=== PATIENT | male | born 1960 | race Caucasian/White ===

== ENCOUNTER → 2017-09-03 | Outpatient (CLI) | payer BC | LOC: M RAD 08:45 | DX: N18.3 Chronic kidney disease, stage 3 (moderate) (principal) ==

== ENCOUNTER → 2022-07-10 | Outpatient (REF) | LOC: M LAB LCGH 09:40 | PROVIDERS: ATTEND Physician Assistant | DX: N18.30 Chronic kidney disease, stage 3 unspecified (principal) ==

== ENCOUNTER → 2022-08-10 | Outpatient (REF) | payer BC ==
[2022-08-10 18:17] LABS: TOTAL PROTEIN,RANDOM URINE 8.3 MG/DL (0.0-14.0)
[2022-08-10 18:21] LABS: CREATININE,RANDOM URINE 49.2 MG/DL
== END ==
LOC: M LAB REF 17:00
PROVIDERS: ATTEND Internal Medicine Nephrology
DX: N18.31 Chronic kidney disease, stage 3a (principal)

== ENCOUNTER → 2023-07-30 | Outpatient (REF) | payer BC | LOC: M SMT PRO 10:09 | PROVIDERS: ATTEND Urology | DX: R97.20 Elevated prostate specific antigen [PSA] (principal) ==

== ENCOUNTER 2023-10-24 06:10 | Inpatient (IN) | payer BC ==
[~2023-10-24] VITALS: Ht 172.7 cm; Wt 122.5 kg
[~2023-10-24 06:10] MED LIST: ALLO300T2 PO; ALTA1CAP3 PO; AMIO0.1T PO; ATOR40TA75 PO; BAYE81TA10 PO; CARV12.5 PO; D 50CAP3 PO; D-10TAB3 PO; DULA3PEN SQ; ELIQ2.5T PO; GLIM4TAB5 PO; INSU100V15 SQ; INSU100V6 SQ; IPRA0.00 INH; JARD1TAB PO; MAGN400C PO; NITR0.4S14 SL; ROCA0.25 PO; TORS5TAB2 PO
[2023-10-24] MEDS ORDERED: INSULIN LISPRO (NovoLOG) PER UNIT SC PRN (06:30)
[2023-10-24] MEDS ORDERED: GLUCAGON INJ 1MG VIAL SC PRN ×2 (06:30→07:35)
[2023-10-24] MEDS ORDERED: GLUCOSE 4GM CHEW TABLET PO PRN ×2 (06:30→07:35)
[2023-10-24] MEDS ORDERED: DEXTROSE 50% 50ML SYRINGE IV PRN ×2 (06:30→07:35)
[2023-10-24] MEDS ORDERED: DEX44CHW2 PO (06:41)
[2023-10-24] MEDS ORDERED: LIDOCAINE 1% MDV 20ML VIAL As Ordered ONE (07:11)
[2023-10-24] MEDS ORDERED: LIDOCAINE 1% SDV 30ML VIAL As Ordered ONE (07:11)
[2023-10-24] MEDS ORDERED: LIDOCAINE 1% SDV 30ML VIAL ONE (07:11)
[2023-10-24] MEDS: ceFAZolin SOD 1 GM in D5W MINI-BAG PLUS 50 ML IV ONE (07:30)
[2023-10-24] MEDS: ceFAZolin SOD 2 GM in IV 1 EA IV ONE (07:30)
[2023-10-24] MEDS: LR 1,000 ML IV SCH ×2 (07:33→14:28)
[2023-10-24] MEDS ORDERED: ONDANSETRON 4MG 2ML VIAL IV PRN ×2 (07:35→12:15)
[2023-10-24] MEDS ORDERED: PERCOCET 5MG/325MG TAB PO PRN ×2 (07:35)
[2023-10-24] MEDS: HEPARIN SOD (PORCINE) 5000UNITS/ML 1ML VIAL/SYRINGE SQ ONE (07:50)
[2023-10-24] MEDS ORDERED: ROCURONIUM BROMIDE 50MG/5ML VIAL As Ordered ONE (09:00)
[2023-10-24] MEDS ORDERED: PHENYLEPHRINE 10MG/ML 1ML VIAL As Ordered ONE (09:00)
[2023-10-24] MEDS ORDERED: MIDAZOLAM INJ 2MG/2ML VIAL As Ordered ONE (09:00)
[2023-10-24] MEDS ORDERED: SUGAMMADEX SODIUM 500 MG/5 ML VIAL (BRIDION) As Ordered ONE (09:00)
[2023-10-24] MEDS ORDERED: ONDANSETRON 4MG 2ML VIAL As Ordered ONE (09:00)
[2023-10-24] MEDS ORDERED: HYDROmorphone HCL 2MG/ML 1ML VIAL As Ordered ONE (09:00)
[2023-10-24] MEDS ORDERED: propofoL 200 MG/20 ML VIAL As Ordered ONE (09:00)
[2023-10-24] MEDS ORDERED: ramipriL 5 MG CAP PO SCH (09:00)
[2023-10-24] MEDS ORDERED: METOCLOPRAMIDE INJ 10MG/2ML VIAL As Ordered ONE (09:00)
[2023-10-24] MEDS ORDERED: dexmedeTOMIDine (4MCG/ML)200MCG/50ML BTL (PRECEDEX) As Ordered ONE (09:00)
[2023-10-24] MEDS ORDERED: LIDOCAINE 2% 100MG/5ML SDV (FOR ANES.) As Ordered ONE (09:00)
[2023-10-24] MEDS ORDERED: ACETAMINOPHEN 1000MG 100ML IV BAG As Ordered ONE (09:00)
[2023-10-24] MEDS ORDERED: fentaNYL 250 MCG/5 ML INJECTION As Ordered ONE (09:00)
[2023-10-24] MEDS ORDERED: DESFLURANE 240 ML INHALANT As Ordered ONE (09:00)
[2023-10-24] MEDS ORDERED: ceFAZolin 2 GM/D5W 50 ML IV BAG ONE (10:54)
[2023-10-24] MEDS ORDERED: ceFAZolin 2 GM/D5W 50 ML IV BAG As Ordered ONE (10:54)
[2023-10-24] MEDS ORDERED: METOCLOPRAMIDE INJ 10MG/2ML VIAL IV PRN (12:15)
[2023-10-24] MEDS ORDERED: fentaNYL 100 MCG/2 ML INJECTION IV PRN (12:15)
[2023-10-24 13:11] LABS: HEMATOCRIT 47.7 % (42.0-52.0); HEMOGLOBIN 15.6 g/dl (13.5-17.5); MEAN CORPUSCULAR HEMOGLOBIN 30.4 pg (27.0-33.0); MEAN CORPUSCULAR HGB CONC 32.7 g/dl (32.0-36.5); MEAN CORPUSCULAR VOLUME 92.8 fl (80.0-96.0); PLATELET COUNT, AUTOMATED 247 10^3/uL (150-450); RED BLOOD COUNT 5.14 10^6/uL (4.30-6.10); WHITE BLOOD COUNT 16.9 10^3/uL (4.0-10.0)
[2023-10-24 13:35] VITALS: BP 122/81; TEMP 97; O2SAT 96
[2023-10-24 13:39] LABS: CALCIUM LEVEL 9.4 MG/DL (8.3-10.6); CREATININE FOR GFR 2.34 MG/DL (0.70-1.30); POTASSIUM SERUM 4.5 MMOL/L (3.5-5.1)
[2023-10-24 14:05] VITALS: BP 122/79; TEMP 97.2; O2SAT 96
[2023-10-24] MEDS ORDERED: AMIO200T49 PO (14:09)
[2023-10-24] MEDS ORDERED: HOME MED LIST COMPLETE! XX SCH (14:10)
[2023-10-24] MEDS: NS 1,000 ML IV SCH (14:28)
[2023-10-24] MEDS: INSULIN LISPRO (NovoLOG) PER UNIT SC SCH ×2 (14:28→21:00)
[2023-10-24 14:35] VITALS: BP 123/77; TEMP 97; O2SAT 96
[2023-10-24] MEDS: AMIODARONE 100MG TABLET (PACERONE) PO SCH (15:55)
[2023-10-24] MEDS: ceFAZolin SOD 1 GM in D5W MINI-BAG PLUS 50 ML IV SCH (15:56)
[2023-10-24 16:35] VITALS: BP 126/77; TEMP 97.5; O2SAT 96
[2023-10-24 17:35] VITALS: BP 125/77; TEMP 97.7; O2SAT 96
[2023-10-24 18:35] VITALS: BP 125/76; TEMP 97.7; O2SAT 96
[2023-10-24] MEDS: HEPARIN SOD (PORCINE) 5000UNITS/ML 1ML VIAL/SYRINGE SC SCH (21:20)
[2023-10-24] MEDS: DOCUSATE SODIUM 100MG CAPSULE PO SCH (21:20)
[2023-10-24] MEDS: CARVedilol 12.5 MG TAB PO SCH (21:20)
[2023-10-24] MEDS: ACETAMINOPHEN TAB 650MG DOSE (2X325MG) PO PRN (21:21)
[2023-10-25 02:00] VITALS: BP 129/74; TEMP 97.7; O2SAT 92
[2023-10-25 05:40] VITALS: BP 140/74; TEMP 98.1; O2SAT 94
[2023-10-25 06:41] LABS: HEMATOCRIT 41.7 % (42.0-52.0); HEMOGLOBIN 13.7 g/dl (13.5-17.5); MEAN CORPUSCULAR HEMOGLOBIN 29.9 pg (27.0-33.0); MEAN CORPUSCULAR HGB CONC 32.9 g/dl (32.0-36.5); PLATELET COUNT, AUTOMATED 211 10^3/uL (150-450); RED BLOOD COUNT 4.58 10^6/uL (4.30-6.10); WHITE BLOOD COUNT 11.6 10^3/uL (4.0-10.0)
[2023-10-25 07:06] LABS: CREATININE FOR GFR 2.15 MG/DL (0.70-1.30); GLOMERULAR FILTRATION RATE 33.1 (>49); POTASSIUM SERUM 4.6 MMOL/L (3.5-5.1)
[2023-10-25] MEDS ORDERED: MACR100C43 PO (08:33)
[2023-10-25] MEDS ORDERED: PERCOCET PO (08:33)
[2023-10-25] MEDS ORDERED: COLA100C5 PO (08:33)
[2023-10-25] MEDS: allopurinoL 300 MG TAB PO SCH (09:01)
[2023-10-25] MEDS: ATORVASTATIN 20 MG TAB PO SCH (09:02)
[2023-10-25 09:03] VITALS: BP 138/75
[2023-10-25] MEDS: TORSEMIDE 10 MG TABLET PO SCH (09:03)
[2023-10-25] MEDS: ramipriL 5 MG CAP PO SCH (09:04)
[2023-10-25 10:00] VITALS: BP 126/71; TEMP 97.9; O2SAT 91
[2023-10-25 14:00] VITALS: BP 120/69; TEMP 97.7; O2SAT 94
== END 2023-10-25 15:11 | disposition home or self-care (01) | DRG 484 ==
LOC: M OR 06:10 → M MSPAV 13:24
PROVIDERS: ADMIT Urology; ATTEND Urology
PROC: 07BC4ZX Excision of Pelvis Lymphatic, Percutaneous Endoscopic Approach, Diagnostic (ICD-10-PCS; 2023-10-24)
PROC: 8E0W4CZ Robotic Assisted Procedure of Trunk Region, Percutaneous Endoscopic Approach (ICD-10-PCS; 2023-10-24)
PROC: 0VT04ZZ Resection of Prostate, Percutaneous Endoscopic Approach (ICD-10-PCS; principal; 2023-10-24 07:30)
DX: C61 Malignant neoplasm of prostate (principal); I13.0 Hypertensive heart and chronic kidney disease with heart failure and stage 1 through stage 4 chronic kidney disease, or unspecified chronic kidney disease; E11.22 Type 2 diabetes mellitus with diabetic chronic kidney disease; I50.9 Heart failure, unspecified; I48.0 Paroxysmal atrial fibrillation; N18.9 Chronic kidney disease, unspecified; E78.5 Hyperlipidemia, unspecified; M10.9 Gout, unspecified; Z95.810 Presence of automatic (implantable) cardiac defibrillator; I25.2 Old myocardial infarction; Z79.4 Long term (current) use of insulin; Z79.82 Long term (current) use of aspirin; Z79.899 Other long term (current) drug therapy; Z11.52 Encounter for screening for COVID-19

== ENCOUNTER → 2025-05-07 | Outpatient (CLI) | payer MEDICARE ==
[~2025-05-07] MED LIST changes: +AMIO200T54 PO; +COLA100C5 PO; +DEX44CHW2 PO; +MACR100C43 PO; +PERCOCET PO
== END ==
LOC: M ONCR 10:41
PROVIDERS: ATTEND General Practice
DX: C61 Malignant neoplasm of prostate (principal); Z90.79 Acquired absence of other genital organ(s); Z79.4 Long term (current) use of insulin; Z79.84 Long term (current) use of oral hypoglycemic drugs; Z79.85 Long-term (current) use of injectable non-insulin antidiabetic drugs; Z79.82 Long term (current) use of aspirin; Z79.899 Other long term (current) drug therapy

== ENCOUNTER → 2025-05-18 | Outpatient (CLI) | payer MEDICARE ==
[2025-05-18] MEDS: LEUPROLIDE 45 MG SYRINGE KIT IM ONE (10:55)
== END ==
LOC: M ONCR 10:43
PROVIDERS: ATTEND General Practice
DX: C61 Malignant neoplasm of prostate (principal)
CPT/HCPCS: 96402; J9217

== ENCOUNTER → 2025-06-11 | Outpatient (RCR) | payer MEDICARE ==
[~2025-06-11] MED LIST changes: +EFFE75CA2 PO
== END ==
LOC: M ONCR 05-18 10:44
PROVIDERS: ATTEND General Practice
DX: Z51.0 Encounter for antineoplastic radiation therapy (principal); C61 Malignant neoplasm of prostate

== ENCOUNTER 2025-07-07 14:34 | Outpatient (RCR) | payer MEDICARE | END 2025-07-11 | LOC: M ONCR 14:34 | PROVIDERS: ATTEND General Practice | DX: Z51.0 Encounter for antineoplastic radiation therapy (principal); C61 Malignant neoplasm of prostate ==

== ENCOUNTER 2025-07-23 14:33 | Outpatient (RCR) | payer MEDICARE | END 2025-08-11 | LOC: M ONCR 14:33 | PROVIDERS: ATTEND General Practice | DX: Z51.0 Encounter for antineoplastic radiation therapy (principal); C61 Malignant neoplasm of prostate ==